=== PATIENT | male | born 1960 | race Caucasian/White ===

== ENCOUNTER 2017-12-25 00:02 | Inpatient (IN) ==
[2017-12-25 00:41] LABS: Basophils % 0.1 %; Eosinophils % 0.1 %; Hematocrit 21.3 % (37.5-50.1); Immature Granulocytes % 0.7 % (0-4); Lymphocytes % 7.1 %; Mean Corpuscular HGB Conc 35.7 g/dL (31.6-35.5); Mean Corpuscular Volume 109.2 fL (83.0-100.0); Mean Platelet Volume 8.8 fL (9.4-12.4); Monocytes % 7.2 %; Neutrophils # 11.7 K/mcL (1.6-8.9); Nucleated Red Blood Cells 0.1 /100 WBC (0); Platelet Count 178 K/mcL (140-400); Red Blood Count 1.95 M/mcL (4.19-5.50); Segmented Neutrophils % 84.8 %
[2017-12-25 01:10] LABS: Alanine Aminotransferase 17 Units/L (7-52); Albumin 2.3 g/dL (3.5-5.7); Albumin/Globulin Ratio 0.8 (1.1-2.2); Alkaline Phosphatase 109 Units/L (34-104); Aspartate Amino Transferase 32 Units/L (13-39); BUN/Creatinine Ratio 24 (6-26); Bilirubin,Total 4.3 mg/dL (0.3-1.0); Blood Urea Nitrogen 22 mg/dL (6-20); Carbon Dioxide 19 mEq/L (23-29); Chloride 96 mEq/L (98-107); Globulin 2.9 g/dL (2.4-3.5); Glucose 161 mg/dL (70-105); Osmolality,Calculated 273 (280-300); Potassium 5.2 mEq/L (3.5-5.1); Sodium 128 mEq/L (136-145); Total Protein 5.2 g/dL (6.4-8.9); Troponin I < 0.03 ng/mL (< 0.04); eGFR For African Americans > 60 (> 60); eGFR For Non-African Americans > 60 (> 60)
[2017-12-25 01:12] LABS: Hemoglobin 7.6 g/dL (12.9-16.9)
[2017-12-25] MEDS ORDERED: 0.9 % Sodium Chloride 1,000 ML ONE (02:17)
[2017-12-25] MEDS ORDERED: Pantoprazole 40 MG VIAL ONE ×2 (02:37→02:45)
[2017-12-25] MEDS ORDERED: 0.9 % Sodium Chloride 250 ML ONE ×3 (03:23→22:39)
[2017-12-25 05:51] LABS: INR 2.1
--- NOTE | 2017-12-25 06:07 | Emergency Department Note ---
Disposition Clinical Impression: GI bleed Qualifiers: GI bleed type/associated pathology: unspecified gastrointestinal hemorrhage type Qualified Code(s): K92.2 - Gastrointestinal hemorrhage, unspecified Anemia Qualifiers: Anemia type: unspecified type Qualified Code(s): D64.9 - Anemia, unspecified Cirrhosis of liver with ascites Qualifiers: Hepatic cirrhosis type: alcoholic cirrhosis Qualified Code(s): K70.31 - Alcoholic cirrhosis of liver with ascites Disposition: Admitted As Inpatient Condition: Serious General Adult HPI - General Chief complaint: ED Weakness Stated complaint: generalized weakness Time Seen by Provider: 12/25/17 00:53 Source: patient Limitations: no limitations Nursing Notes Reviewed: Yes Vital Signs Reviewed: Yes - History of Present Illness HPI Narrative: She presented to the emergency department for evaluation of shortness of breath and generalized weakness. Patient states that symptoms have been progressive over the last week. He states that he has had dark bowel movements which included approximately 4 bowel movements over the last 24 hours. Patient states he has noticed that his skin is sometimes pale. Family knows that he is occasionally jaundiced including his eyes. Patient does not have any previous diagnosis of liver disease. He does drink approximately 6 cocktails daily. Bedside ultrasound so shows significant cirrhosis. The patient's stool guaiac was positive for melanotic stool. Pain Scale: 0 - Related Data Home Medications Medication Instructions Recorded Confirmed Metoprolol [Lopressor] 50 mg PO BID 12/25/17 12/25/17 metFORMIN [Glucophage] 500 mg PO 0800 12/25/17 12/25/17 Allergies Allergy/AdvReac Type Severity Reaction Status Date / Time No Known Allergies Allergy Verified 12/25/17 00:14 Review of Systems: CONSTITUTIONAL: Weakness and fatigue No weight loss, fever, chills HEENT: Eyes: No visual changes. Ears, Nose, Throat: No hearing loss, difficulty talking or unable to swallow. SKIN: Color changes. No rash or itching. CARDIOVASCULAR: No chest pain, chest pressure or chest discomfort. No palpitations or edema. RESPIRATORY: Shortness of breath GASTROINTESTINAL: Melanotic stool. No abdominal pain. No vomiting. GENITOURINARY: No burning on urination or hematuria. NEUROLOGICAL: No headache, dizziness, syncope, paralysis, ataxia, numbness or tingling in the extremities. No change in bowel or bladder control. MUSCULOSKELETAL: No muscle pain, back pain, joint pain or stiffness. Past Medical History - Past Medical History Medical history: Reports: no medical history - Social History Smoking Status: Former smoker Alcohol use: Reports: occasionally Drug use: Reports: none Physical Exam General: Well appearing, nontoxic, no acute distress Head: Normocephalic Atraumatic Eyes: PERRL, EOMI ENT: Airway patent, no stridor Neck: supple, no meningismus Chest: Lungs clear to auscultation bilateral Cardiac: Regular rate and rhythm, no murmurs, rubs or gallops Abdomen: Mild distention soft, nontender; no guarding, rebound, or tenderness to percussion Musculoskeletal: Calves symmetric, nontender, no palpable cord Skin: Pale with mild jaundice, No rash, normal skin tone Neuro: Alert and Oriented to person, place, and time; No focal deficit, CN 2-12 symmetric and intact - General Limitations: no limitations General appearance: alert, in no apparent distress Course - Consultations Consultation #1: Discussed with Dr. Rivero. Patient was seen and evaluated during downtime. Patient was kept in the emergency department secondary to allow for closer observation. The patient received 1 unit of blood which did improve his overall blood pressure. The patient was then further discuss Dr. Rivero after downtime resolution. The patient INR is 2.1. Recommends giving vitamin K as well as FFP and one more unit of blood secondary to coagulopahty of the liver. Vital Signs Temperature 97.6 F 12/25/17 00:03 Pulse Rate 109 12/25/17 00:03 Respiratory Rate 18 12/25/17 00:03 Blood Pressure 74/51 12/25/17 00:03 O2 Sat by Pulse Oximetry 99 12/25/17 00:03 Temperature 97.6 F 12/25/17 00:03 Pulse Rate 95 12/25/17 06:33 Respiratory Rate 18 12/25/17 06:33 Blood Pressure 95/56 12/25/17 06:33 O2 Sat by Pulse Oximetry 97 12/25/17 06:33 Oxygen Delivery Oxygen Delivery Room Air Medical Decision Making - Medical Records Medical records reviewed: Yes I reviewed the patient's medical records. - Lab Data Lab results reviewed: Yes I reviewed the patient's lab results. Result diagrams: 12/25/17 00:20 12/25/17 00:20 Lab Results 12/25/17 12/25/17 12/25/17 Range/Units 00:20 00:20 00:20 WBC 13.8 H (4.3-11.1) K/mcL RBC 1.95 L (4.19-5.50) M/mcL Hgb 7.6 L (12.9-16.9) g/dL Hct 21.3 L (37.5-50.1) % MCV 109.2 H (83.0-100.0) fL MCH 39.0 H (28.0-33.3) pg MCHC 35.7 H (31.6-35.5) g/dL RDW 16.0 H (11.5-14.5) % Plt Count 178 (140-400) K/mcL MPV 8.8 L (9.4-12.4) fL Immature Gran % 0.7 (0-4) % Seg Neutrophils % 84.8 % Lymphocytes % 7.1 % Monocytes % 7.2 % Eosinophils % 0.1 % Basophils % 0.1 % Neutrophils # 11.7 H (1.6-8.9) K/mcL Lymphocytes # 1.0 (0.6-4.6) K/mcL Monocytes # 1.0 (0.0-1.3) K/mcL Eosinophils # 0.0 (0.0-0.6) K/mcL Basophils # 0.0 (0.0-0.2) K/mcL Nucleated RBCs/100 WBC 0.1 H (0) /100 WBC PT 23.0 H (9.4-12.1) Seconds INR 2.1 APTT 35.0 (26.0-36.0) Seconds Sodium 128 L (136-145) mEq/L Potassium 5.2 H (3.5-5.1) mEq/L Chloride 96 L (98-107) mEq/L Carbon Dioxide 19 L (23-29) mEq/L BUN 22 H (6-20) mg/dL Creatinine 0.90 (0.70-1.30) mg/dL Est GFR ( Amer) > 60 (> 60) Est GFR (Non-Af Amer) > 60 (> 60) BUN/Creatinine Ratio 24 (6-26) Glucose 161 H (70-105) mg/dL Calculated Osmolality 273 L (280-300) Calcium 8.0 L (8.6-10.3) mg/dL Total Bilirubin 4.3 H (0.3-1.0) mg/dL AST 32 (13-39) Units/L ALT 17 (7-52) Units/L Alkaline Phosphatase 109 H (34-104) Units/L Troponin I < 0.03 (< 0.04) ng/mL Serum Total Protein 5.2 L (6.4-8.9) g/dL Albumin 2.3 L (3.5-5.7) g/dL Globulin 2.9 (2.4-3.5) g/dL Albumin/Globulin Ratio 0.8 L (1.1-2.2) Urine Color (Yellow) Urine Clarity (Clear) Urine pH (5.0-8.0) pH Units Ur Specific [place] (1.010-1.025) Urine Protein (Neg-Trace) mg/dL Urine Glucose (UA) (Normal) mg/dL Urine Ketones (Negative) mg/dL Urine Blood (Negative) Urine Nitrite (Negative) Urine Bilirubin (Negative) Urine Urobilinogen (Normal) mg/dL Ur Leukocyte Esterase (Negative) Urine Microscopic RBC (0-3) per hpf Urine Microscopic WBC (0-3) per hpf Ur Squamous Epith Cells (None-Few) per lpf Urine Bacteria (None-Few) per hpf Hyaline Casts (None-Few) per lpf Urine Mucus (Few) Ur Culture Indicated? (NO) Blood Type Antibody Screen Crossmatch 12/25/17 12/25/17 Range/Units 01:41 04:39 WBC (4.3-11.1) K/mcL RBC (4.19-5.50) M/mcL Hgb (12.9-16.9) g/dL Hct (37.5-50.1) % MCV (83.0-100.0) fL MCH (28.0-33.3) pg MCHC (31.6-35.5) g/dL RDW (11.5-14.5) % Plt Count (140-400) K/mcL MPV (9.4-12.4) fL Immature Gran % (0-4) % Seg Neutrophils % % Lymphocytes % % Monocytes % % Eosinophils % % Basophils % % Neutrophils # (1.6-8.9) K/mcL Lymphocytes # (0.6-4.6) K/mcL Monocytes # (0.0-1.3) K/mcL Eosinophils # (0.0-0.6) K/mcL Basophils # (0.0-0.2) K/mcL Nucleated RBCs/100 WBC (0) /100 WBC PT (9.4-12.1) Seconds INR APTT (26.0-36.0) Seconds Sodium (136-145) mEq/L Potassium (3.5-5.1) mEq/L Chloride (98-107) mEq/L Carbon Dioxide (23-29) mEq/L BUN (6-20) mg/dL Creatinine (0.70-1.30) mg/dL Est GFR ( Amer) (> 60) Est GFR (Non-Af Amer) (> 60) BUN/Creatinine Ratio (6-26) Glucose (70-105) mg/dL Calculated Osmolality (280-300) Calcium (8.6-10.3) mg/dL Total Bilirubin (0.3-1.0) mg/dL AST (13-39) Units/L ALT (7-52) Units/L Alkaline Phosphatase (34-104) Units/L Troponin I (< 0.04) ng/mL Serum Total Protein (6.4-8.9) g/dL Albumin (3.5-5.7) g/dL Globulin (2.4-3.5) g/dL Albumin/Globulin Ratio (1.1-2.2) Urine Color Yellow (Yellow) Urine Clarity Clear (Clear) Urine pH 5.5 (5.0-8.0) pH Units Ur Specific [place] > 1.030 H (1.010-1.025) Urine Protein Negative (Neg-Trace) mg/dL Urine Glucose (UA) Normal (Normal) mg/dL Urine Ketones Negative (Negative) mg/dL Urine Blood Large H (Negative) Urine Nitrite Negative (Negative) Urine Bilirubin Negative (Negative) Urine Urobilinogen Normal (Normal) mg/dL Ur Leukocyte Esterase Negative (Negative) Urine Microscopic RBC 5-15 H (0-3) per hpf Urine Microscopic WBC 0-3 (0-3) per hpf Ur Squamous Epith Cells Few (None-Few) per lpf Urine Bacteria Few (None-Few) per hpf Hyaline Casts Few (None-Few) per lpf Urine Mucus Few (Few) Ur Culture Indicated? NO (NO) Blood Type A POSITIVE Antibody Screen NEGATIVE Crossmatch See Detail - Radiology Data Radiology results reviewed: Yes I reviewed the patient's radiology results. - EKG Data EKG #1 EKG attestation: Yes I reviewed and interpreted this EKG. EKG results narrative: EKG shows sinus tachycardia with ventricular rate 103. CO 159. QRS 84. QTC 396. Patient has no significant ST elevations or depressions. Critical Care Time Critical Care Time: Yes Total Critical Care Time: 50 Attestation: Critical care performed: Time is exclusive of separately billable procedures. Time includes: direct patient care, patient reassessment, coordination of patient care, interpretation of data (laboratory data, radiology data, and respiratory data), review of patient's medical records, medical consultation and documentation of patient care. Procedures included in critical care time: Procedures excluded from critical care time: Attestation Statement - Attestation Attestation: I, Harsh Jarvis MD, personally evaluated this patient and discussed their management with the resident physician. I reviewed the resident's note and agree with the documented findings, medical decision making, and plan of care. 57-year-old male presents to the emergency department with a complaint of generalized weakness started yesterday and got progressively worse throughout the day today. He states that he was barely able to get to the bathroom and back to his bed today and he just spent all day lying in bed. He denies any pain. On arrival here the patient was noted to be tachycardic and hypotensive. He appears somewhat pale. On questioning he admits to having black stools recently and states that he thought it was from the cranberry juice because he drinks 5 to 6 vodkas with cranberry juice daily. No prior history of GI bleed. No bright red rectal bleeding. No nausea or vomiting. No abdominal pain. He denies any prior history of liver problems. On examination patient is a well-developed well-nourished male in no acute distress. He does appear pale. He is alert and oriented 3. There is no cyanosis or diaphoresis. Breath sounds are clear and equal bilaterally. Heart regular with a mild tachycardia. Abdomen is soft and nontender with normal bowel sounds. Labs reviewed. Hemoglobin 7.6. Chest x-ray negative. CT of the abdomen and pelvis shows a cirrhotic-appearing liver with a large amount of ascites. Otherwise no acute abnormality. EKG shows a sinus tachycardia with ventricular rate of 103. Left axis deviation. Low QRS voltage in precordial leads. Possible anterior PA, probably old. IV fluids initiated and patient received a transfusion of PRBCs. The hospitalist, Dr. Rivero, was consulted and accepted admission of the patient.
[2017-12-25 06:31] LABS: Bilirubin,Urine Negative (Negative); Blood,Urine Large (Negative); Clarity,Urine Clear (Clear); Color,Urine Yellow (Yellow); Glucose,Urine (UA) Normal (Normal); Ketones,Urine Negative (Negative); PH,Urine 5.5 pH Units (5.0-8.0); Protein,Urine Negative (Neg-Trace); Specific Gravity,Urine > 1.030 (1.010-1.025)
[2017-12-25 06:32] LABS: Bacteria,Urine Few per hpf (None-Few); Hyaline Casts,Urine Few per lpf (None-Few); Leukocyte Esterase,Urine Negative (Negative); Mucus,Urine Few (Few); Nitrite,Urine Negative (Negative); Squamous Epithelial Cell,Urine Few per lpf (None-Few); Urobilinogen,Urine Normal (Normal); WBC,Urine 0-3 per hpf (0-3)
--- NOTE | 2017-12-25 08:54 | Internal Med History&Physical ---
Date of Encounter: 12/25/17 Time of Encounter: 08:00 Internal Medicine - H&P: HPI Chief complaint: melenic stools Admitted From: Home History of present illness: Patient is a 57-year-old male with past medical history significant for alcohol abuse/dependence, hypertension and diabetes who presents to the ER on 12/25/17 due to generalized weakness and melenic stools. Patient reports a 3 day history of generalized weakness with shortness of breath and dark tarry stools. Patient reports that generalized weakness gradually has gotten worse and decided to come into the ER for evaluation. In the ER, patient was found to have a hemoglobin of 7.6 and received 1 unit of packed red blood cells. CT of the abdomen showed cirrhotic appearing liver with large amount of ascites. Patient also hypotensive secondary to GI bleed. Patient admitted to the progressive unit for further evaluation and management. Past Med Surg Social Fam HX - Past Medical History Medical history: no medical history - Past Surgical History Surgical History: non-contributory - Social History Smoking Status: Former smoker Alcohol use: occasionally Drug use: none - Additional Family History Additional family history: Noncontributory Internal Medicine - H&P: Meds Metoprolol [Lopressor] 50 mg PO BID 12/25/17 [History] metFORMIN [Glucophage] 500 mg PO 0800 12/25/17 [History] 3 Allergy/AdvReac Type Severity Reaction Status Date / Time No Known Allergies Allergy Verified 12/25/17 00:14 All Systems PM: A 10-system review of systems was performed and is negative for pertinent findings except as documented above in the HPI. - Constitutional Vitals: Temp Pulse Resp BP Pulse Ox 97.6 F 95 18 84/50 97 12/25/17 00:03 12/25/17 06:33 12/25/17 07:02 12/25/17 07:02 12/25/17 06:33 General appearance: Present: A&O X 3, no acute distress - Eye Eye exam: Present: normal appearance, PERRL, conjuntiva pink, sclera anicteric Pupils: Present: PERRL - ENT ENT exam: Present: mucous membranes moist - Respiratory Respiratory exam: Present: CTAB. Absent: accessory muscle use, rales, rhonchi, wheezes - Cardiovascular Cardiovascular exam: Present: RRR, +S1, +S2. Absent: diastolic murmur, gallop, rubs, systolic murmur - GI/Abdominal GI/Abdominal exam: Present: normal bowel sounds, soft, no peritoneal signs. Absent: distended, tenderness - Extremities Exam Extremities exam: Absent: pedal edema - Neurological Exam Neurological exam: Present: oriented X3 - Psychiatric Psychiatric exam: Present: normal mood - Skin Skin exam: Present: normal color Internal Med - H&P Results - Labs CBC & Chem 7: 12/25/17 00:20 12/25/17 00:20 - Assessment and plan (1) GI bleed Current Visit: Yes Status: Acute Assessment and plan: Patient reports a 3 day history of generalized weakness with shortness of breath and dark tarry stools. Will continue IV PPI GI consulted and appreciate recommendations Qualifiers: GI bleed type/associated pathology: unspecified gastrointestinal hemorrhage type Qualified Code(s): K92.2 - Gastrointestinal hemorrhage, unspecified (2) Anemia Current Visit: Yes Status: Acute Assessment and plan: In the ER, patient was found to have a hemoglobin of 7.6 and received 1 unit of packed red blood cells. Suspect secondary to upper GI bleed as patient reports of melenic stools Patient to receive second unit of packed red blood cells this morning Will monitor H&H Qualifiers: Anemia type: unspecified type Qualified Code(s): D64.9 - Anemia, unspecified (3) Cirrhosis of liver with ascites Current Visit: Yes Status: Acute Assessment and plan: CT of the abdomen showed cirrhotic appearing liver with large amount of ascites GI consulted and appreciate recommendations Qualifiers: Hepatic cirrhosis type: alcoholic cirrhosis Qualified Code(s): K70.31 - Alcoholic cirrhosis of liver with ascites (4) HTN (hypertension), benign Current Visit: Yes Status: Acute Assessment and plan: Patient is actually hypotensive due to acute blood loss anemia secondary to GI Blood pressure medicines will be held Will continue to monitor (5) Diabetes Current Visit: Yes Status: Acute Assessment and plan: Will hold metformin and cover with sliding scale insulin Qualifiers: Chronic kidney disease stage: unspecified stage Qualified Code(s): E08.22 - Diabetes mellitus due to underlying condition with diabetic chronic kidney disease; Z79.4 - retirement (current) use of insulin (6) DVT prophylaxis Current Visit: Yes Status: Acute Assessment and plan: Patient with acute blood loss anemia so will use SCDs - Time Spent With Patient Total time spent is greater than 50% in coordination of care (as documented) at patient's floor/unit and/or counseling patient:
[2017-12-25] MEDS ORDERED: 0.9 % Sodium Chloride 500 ML ONE (08:58)
[2017-12-25] MEDS ORDERED: Naloxone 0.4 MG/ML INJ IVP PRN ×2 (09:15→09:18)
[2017-12-25 10:06] LABS: Hematocrit 20.6 % (37.5-50.1); Hemoglobin 7.6 g/dL (12.9-16.9)
[2017-12-25] MEDS ORDERED: 0.9 % Sodium Chloride 500 ML IVC ONE (10:24)
[2017-12-25] MEDS ORDERED: Octreotide 50 MCG/ML SYRINGE IVP ONE (12:19)
--- NOTE | 2017-12-25 12:22 | Gastroenterology Consult Note ---
<MontanezHernán Hooper - Last Filed: 12/25/17 12:20> Date of Encounter: 12/25/17 Time of Encounter: 11:20 - Assessment and plan (1) GI bleed Current Visit: Yes Status: Acute Assessment and plan: Pt with melena for the past 3 days. Plan for EGD tomorrow to r/o esophagitis, gastritis, duodenitis, PUD, MW tear, or AVM. Qualifiers: GI bleed type/associated pathology: unspecified gastrointestinal hemorrhage type Qualified Code(s): K92.2 - Gastrointestinal hemorrhage, unspecified (2) Anemia Current Visit: Yes Status: Acute Assessment and plan: Hgb on admission 7.6. Continue to monitor CBC and transfuse PRBC as needed. Plan for EGD tomorrow. Qualifiers: Anemia type: unspecified type Qualified Code(s): D64.9 - Anemia, unspecified (3) Cirrhosis of liver with ascites Current Visit: Yes Status: Acute Assessment and plan: Secondary to alcohol abuse. MELD-Na 26, Child-[place] class C, DF 61.8. Consider steroids due to elevated DF, monitor bilirubin. Start octreotide drip. Monitor hepatic panel daily. Complete paracentesis and send fluid for cell count. Infuse Albumin 25%, 8 gm/L if greater than 5 liters removed. Complete liver workup. Qualifiers: Hepatic cirrhosis type: alcoholic cirrhosis Qualified Code(s): K70.31 - Alcoholic cirrhosis of liver with ascites (4) Elevated INR Current Visit: Yes Status: Acute Assessment and plan: INR 2.1 on admission. Start Vitamin K 10 mg PO for 3 days. Recommend 2 FFP tonight for EGD tomorrow. - Time Spent With Patient Total time spent is greater than 50% in coordination of care (as documented) at patient's floor/unit and/or counseling patient: GI History of Present Illness - Data of Consult Patient: new to practice Consult date: 12/25/17 Requesting Physician: Bennett Rivero MD - Consult Narrative Reason for consult: Melena, Anemia History of present illness: Mr. Oliver is a 57 year old male with PMHx of alcohol abuse, HTN, DM who presented to the ED 12/25 for evaluation of generalized weakness and melena for the past 3 days. Pt states his weakness has gradually worsened. Hgb on admission was 7.6. CT A/P with cirrhotic appearance to liver with large amount of ascites. He admits to drinking alcohol daily, but can not tell me how much he drinks. Procedures: None NSAIDs: ASA Anticoagulation: None Past Med Surg Social Fam HX - Past Medical History Medical history: no medical history - Past Surgical History Surgical History: non-contributory - Social History Smoking Status: Former smoker Alcohol use: occasionally Drug use: none - Gastrointestinal Gastrointestinal: Present: as per HPI - Constitutional Constitutional: as per HPI - EENT Eyes: as per HPI Ears: Present: as per HPI Nose, mouth and throat: Present: as per HPI - Cardiovascular Cardiovascular ROS: Present: as per HPI - Respiratory Respiratory IM: Present: as per HPI - Genitourinary Genitourinary: Absent: change in color, Urinary frequency - Neurological ROS Neurological GI: Present: as per HPI - Hematologic/Lymphatic Hematologic/Lymphatic pediatric: Present: as per HPI - Musculoskeletal Musculoskeletal ROS GI: Present: as per HPI - Integumentary Integumentary GI: Present: as per HPI - Psychiatric ROS Psychiatric GI: Present: as per HPI - Endocrine Endocrine IM: Present: as per HPI - Constitutional Vitals: Temp Pulse Resp BP Pulse Ox 97.6 F 99 18 84/44 98 12/25/17 11:18 12/25/17 11:18 12/25/17 11:18 12/25/17 11:18 12/25/17 11:03 General appearance: Present: cooperative, A&O X 3, no acute distress, answers questions appropriately - Head Head exam: Present: atraumatic, normocephalic - Eye Eye exam: Present: normal appearance, sclera anicteric - ENT ENT exam: Present: mucous membranes dry - Neck Neck exam general surgery: Present: normal inspection, trachea midline - Respiratory Respiratory exam: Present: CTAB. Absent: rales, rhonchi - Cardiovascular Cardiovascular exam: Present: RRR, +S1, +S2 - GI/Abdominal GI/Abdominal exam: Present: distended (mild), soft, no peritoneal signs. Absent : firm, guarding, tenderness - Expanded GI/Abdominal Exam GI/Abdominal exam expanded: Present: ascites - Rectal Rectal exam: Present: deferred - Extremities Exam Extremities exam: Present: warm - Neurological Exam Neurological exam: Present: no focal deficits - Psychiatric Psychiatric exam: Present: normal affect, normal mood - Skin Skin exam: Present: dry, intact, normal color, warm Results - Labs CBC & Chem 7: 12/25/17 09:54 12/25/17 00:20 Labs: Last Result Calcium 8.0 mg/dL (8.6-10.3) L 12/25/17 00:20 Troponin I < 0.03 ng/mL (< 0.04) 12/25/17 00:20 Entire Visit Hgb 7.6 g/dL (12.9-16.9) L 12/25/17 09:54 Hct 20.6 % (37.5-50.1) L 12/25/17 09:54 PT 23.0 Seconds (9.4-12.1) H 12/25/17 00:20 Total Bilirubin 4.3 mg/dL (0.3-1.0) H 12/25/17 00:20 AST 32 Units/L (13-39) 12/25/17 00:20 ALT 17 Units/L (7-52) 12/25/17 00:20 - ABG ABG results: PT/INR, D-dimer PT 23.0 Seconds (9.4-12.1) H 12/25/17 00:20 Consult Discharge Plan - Plan Referrals: Naresh Enciso DO [Primary Care Provider] - (Patient to call Dr. Enciso when discharged to make hospital follow up appointment.) <Tierra Song - Last Filed: 12/25/17 17:44> Date of Encounter: 12/25/17 - Time Spent With Patient Total time spent is greater than 50% in coordination of care (as documented) at patient's floor/unit and/or counseling patient: GI History of Present Illness - Data of Consult Requesting Physician: Bennett Rivero MD - Consult Narrative History of present illness: Mr. Oliver is a 57 year old male - Constitutional Vitals: Temp Pulse Resp BP Pulse Ox 97.6 F 95 21 98/67 98 12/25/17 16:57 12/25/17 16:57 12/25/17 16:57 12/25/17 16:57 12/25/17 16:57 Results - Labs CBC & Chem 7: 12/25/17 15:21 12/25/17 00:20 Labs: Last Result Calcium 8.0 mg/dL (8.6-10.3) L 12/25/17 00:20 Ferritin 1069 ng/ml (20-250) H 12/25/17 15:21 Troponin I < 0.03 ng/mL (< 0.04) 12/25/17 00:20 Entire Visit Hgb 8.8 g/dL (12.9-16.9) L 12/25/17 15:21 Hct 24.2 % (37.5-50.1) L 12/25/17 15:21 PT 23.0 Seconds (9.4-12.1) H 12/25/17 00:20 Ferritin 1069 ng/ml (20-250) H 12/25/17 15:21 Total Bilirubin 4.3 mg/dL (0.3-1.0) H 12/25/17 00:20 AST 32 Units/L (13-39) 12/25/17 00:20 ALT 17 Units/L (7-52) 12/25/17 00:20 - ABG ABG results: PT/INR, D-dimer PT 23.0 Seconds (9.4-12.1) H 12/25/17 00:20 - Impressions Impressions Paracentesis Ultrasound 12/25/17 12:14 IMPRESSION: 1. Successful ultrasound guided paracentesis. D/ / Riley Sood MD / Riley Sood MD Interpreting Provider: Riley Sood MD - Attending Attestation I have personally performed a face to face evaluation on this patient. I have reviewed and agree with the care plan. History and Exam by me shows: Patient seen at the bedside sitting in the chair not in acute distress. On examination abdomen is mildly distended and also has leg swelling. Does admit of drinking heavily. Assessment: Patient with alcoholic cirrhosis. Currently patient DF is 60. Coagulopathy with INR 2.1 also has anemia and it does admit of having black stool and per patient he vomited small amount of blood that about 3 days ago. Recommendation: Vitamin K daily for 3 days FFP 2, if DF is increasing then we will start him on steroid possible EGD in the morning. Also we will start him on octreotide infusion.
[2017-12-25] MEDS: *HR* Phytonadione 5 MG TABLET PO SCH (13:16)
[2017-12-25] MEDS: Octreotide 400 MCG in 0.9 % Sodium Chloride 100 ML IVC SCH (13:17)
--- NOTE | 2017-12-25 14:38 | IR Procedure Note ---
Date of procedure: 12/25/17 Consent Obtained: Written consent Timeout: Correct patient and procedure verified, Time out performed, Skin prep completed Local anesthetic: Lidocaine 1% Indications: Ascites Procedure Performed: Paracentesis Was there an dental assistant teacher present: No Estimated blood loss (cc): 0 Complications: None; Tolerated procedure well Post Procedure Treatment Plan: Monitor on floor Specimen: To path
--- NOTE | 2017-12-25 15:14 | Electrocardiograph Report ---
[place] [address] Test Date: 2017-12-25 Pat Name: Solis Oliver Department: 103 Room: 2N11 Gender: M Sales Enablement Specialist: DALE : 1960 Requested By: Harsh Jarvis Order Number: [id number] Reading MD: Dixie Chung Measurements Intervals [place] Rate: 103 P: 22 OR: 159 QRS: -32 QRSD: 84 T: 60 QT: 336 QTc: 396 Interpretive Statements SINUS TACHYCARDIA LEFT AXIS DEVIATION [QRS AXIS < -30] LOW QRS VOLTAGE IN PRECORDIAL LEADS [QRS DEFLECTION < 1.0 mV IN CHEST LEADS] POSSIBLE ANTERIOR MYOCARDIAL INFARCTION [30 ms Q WAVE IN V3/V4, OR R < 0.2 mV IN V4], PROBABLY OLD Electronically Signed On 12-25-2017 15:13:10 EDT by Dixie Chung
[2017-12-25 15:39] LABS: Hematocrit 24.2 % (37.5-50.1); Hemoglobin 8.8 g/dL (12.9-16.9)
[2017-12-25 18:01] LABS: RBC,Pleural Fluid < 0.002 M/mcL
[2017-12-25] MEDS: Pantoprazole 40 MG VIAL IVP SCH (20:26)
[2017-12-25 21:51] LABS: Hemoglobin 8.5 g/dL (12.9-16.9)
--- NOTE | 2017-12-25 23:49 | Anesthesia Evaluation PreOp ---
Date of Encounter: 12/26/17 Time of Encounter: 08:14 - Past History Planned Operation: EGD Cardiac History: HTN Pulmonary History: Former smoker FRONT END JAVA DEVELOPER History: Denies Any Significant HX Other Medical History: Diabetes Type II, Other (ETOH abuse, anemia, melana) Anesthesia History: No Prior Anesthetic Complications, Past Anesthesia (back sx) Alcohol Use: occasionally Drug use: none Medications and Allergies Aspirin [Lo-Dose Aspirin EC] 81 mg PO Q48H 12/25/17 [History] Cholecalciferol (D-3) [Vitamin D] 1,000 unit PO DAILY 12/25/17 [History] Metoprolol [Lopressor] 50 mg PO BID 12/25/17 [History] Sildenafil Citrate [Revatio] 20 mg PO DAILY PRN 12/25/17 [History] metFORMIN [Glucophage] 500 mg PO 0800 12/25/17 [History] 3 Allergy/AdvReac Type Severity Reaction Status Date / Time No Known Allergies Allergy Verified 12/25/17 09:32 - Meds/Allergy Pre-op Review Medications Reviewed: Yes Allergies Reviewed: Yes Beta Blockers on Current Med List: No Anesthesia Results - Labs 12/26/17 06:25 12/26/17 04:21 Anesthesia Exam Selected Entries 12/26/17 06:44 Temperature 98.5 F Pulse Rate 89 Respiratory Rate 18 Blood Pressure 86/51 O2 Sat by Pulse Oximetry 95 Oxygen Delivery Method Room Air Weight: 94kg NPO (# of Hours): 8 - HEENT Pupil (Motor): EOMI Mallampati: II Teeth: Edentulous Oral Opening: Greater than 3 - FRONT END JAVA DEVELOPER LOC: Oriented FRONT END JAVA DEVELOPER Motor: Normal RUE, Normal LUE, Normal RLE, Normal LLE, Normal Face FRONT END JAVA DEVELOPER Sensory: Normal: RUE, LUE, RLE, LLE, Face - Cardiac Rhythm: Regular Murmur: None - Pulmonary Breath Sounds: bilateral Clear Respiratory Effort: Symmetrical Anesthesia Assess/Plan ASA Score: 3 Modified Cleve Scale for Level of Consciousness: Cooperative, oriented, and tranquil Anesthetic Plan: MAC Monitoring Plan: Standard Monitors Recovery Plan: Other (agrees to MAC)
[2017-12-26] MEDS: Octreotide 400 MCG in 0.9 % Sodium Chloride 100 ML IVC SCH (00:15)
[2017-12-26 00:58] LABS: Hepatitis A Antibody IgM Nonreactive (Nonreactive); Hepatitis B Core IgM Nonreactive (Nonreactive); Hepatitis B Surface Antigen Nonreactive (Nonreactive); Hepatitis C Virus Antibody Nonreactive (Nonreactive)
[2017-12-26 05:21] LABS: BUN/Creatinine Ratio 26 (6-26); Blood Urea Nitrogen 21 mg/dL (6-20); Calcium 7.5 mg/dL (8.6-10.3); Carbon Dioxide 21 mEq/L (23-29); Chloride 104 mEq/L (98-107); Glucose 119 mg/dL (70-105); Osmolality,Calculated 276 (280-300); Potassium 5.4 mEq/L (3.5-5.1); Sodium 131 mEq/L (136-145); eGFR For African Americans > 60 (> 60); eGFR For Non-African Americans > 60 (> 60)
[2017-12-26] MEDS: Pantoprazole 40 MG VIAL IVP SCH ×2 (06:12→18:39)
[2017-12-26 07:01] LABS: Basophils % 0.4 %; Eosinophils # 0.4 K/mcL (0.0-0.6); Eosinophils % 4.2 %; Hematocrit 19.7 % (37.5-50.1); Hemoglobin 7.2 g/dL (12.9-16.9); Immature Granulocytes % 0.7 % (0-4); Lymphocytes # 2.1 K/mcL (0.6-4.6); Lymphocytes % 20.2 %; Mean Corpuscular HGB Conc 36.5 g/dL (31.6-35.5); Mean Corpuscular Hemoglobin 36.7 pg (28.0-33.3); Mean Corpuscular Volume 100.5 fL (83.0-100.0); Mean Platelet Volume 8.6 fL (9.4-12.4); Monocytes # 0.9 K/mcL (0.0-1.3); Monocytes % 9.2 %; Neutrophils # 6.6 K/mcL (1.6-8.9); Platelet Count 104 K/mcL (140-400); Red Blood Count 1.96 M/mcL (4.19-5.50); Red Cell Distribution Width 22.5 % (11.5-14.5); Segmented Neutrophils % 65.3 %
[2017-12-26] MEDS ORDERED: *HR* Propofol 200 MG/20 ML VIAL IVP ONE (07:13)
[2017-12-26] MEDS ORDERED: Lidocaine -MPF 2% 2 ML VIAL ONE (07:13)
[2017-12-26] MEDS ORDERED: Propofol 500 MG/50 ML INFUS..BTL ONE (07:13)
[2017-12-26 07:19] LABS: Basophils,Pleural Fluid 1 %; Lymphocytes,Pleural Fluid 12 %; Monocytes,Pleural Fluid 4 %
[2017-12-26 07:29] LABS: Appearance of Pleural Fl Clear (Clear)
[2017-12-26] MEDS ORDERED: *HR* PHENYLEPHRINE 1,000 MCG/10 ML SYRINGE IVP ONE (07:31)
[2017-12-26] MEDS: *HR* Phytonadione 5 MG TABLET PO SCH (07:54)
[2017-12-26] MEDS ORDERED: Simethicone 40 MG/0.6 ML MLS IR ONE (08:25)
[2017-12-26] MEDS ORDERED: Tetracaine/Benzocaine/Butamben 200MG/SPRAY (100SPY/BOT) MM ONE (08:25)
[2017-12-26 08:33] LABS: INR 1.7; Prothrombin Time 18.4 Seconds (9.4-12.1)
[2017-12-26] MEDS ORDERED: Pantoprazole 40 MG in 0.9 % Sodium Chloride Mini Bag 100 ML IVC SCH (10:00)
[2017-12-26] MEDS ORDERED: Acetaminophen 325 MG TABLET PO PRN (13:53)
[2017-12-26] MEDS ORDERED: *HR* Dextrose 50 % in Water (Syg) 50 ML SYRINGE IVP PRN (13:54)
[2017-12-26] MEDS ORDERED: D5% in Water 1,000 ML IVC PRN (13:54)
[2017-12-26] MEDS ORDERED: Dextrose Gel 15 GM/37.5 ML TUBE PO PRN ×2 (13:54)
--- NOTE | 2017-12-26 13:57 | Internal Med Progress Note ---
Date of Encounter: 12/26/17 Time of Encounter: 13:55 - Assessment and plan (1) GI bleed Current Visit: Yes Status: Acute Assessment and plan: Hypotension secondary to acute blood lows anemia due to acute upper GI bleed exacerbated by high INR related to cirrhosis Was transfused with 2 units of blood and FFP Upper endoscopy showed grade D esophagitis, MV tear, duodenal ulcer status post catheterization Hold aspirin Patient reports a 3 day history of generalized weakness with shortness of breath and dark tarry stools. Will continue IV PPI GI consulted follow-up Transfuse 2 more units of red blood cells Qualifiers: GI bleed type/associated pathology: unspecified gastrointestinal hemorrhage type Qualified Code(s): K92.2 - Gastrointestinal hemorrhage, unspecified (2) Anemia Current Visit: Yes Status: Acute Assessment and plan: In the ER, patient was found to have a hemoglobin of 7.6 Will monitor H&H Qualifiers: Anemia type: unspecified type Qualified Code(s): D64.9 - Anemia, unspecified (3) Cirrhosis of liver with ascites Current Visit: Yes Status: Acute Assessment and plan: CT of the abdomen showed cirrhotic appearing liver with large amount of ascites Had paracenteses removing 3.5 L Qualifiers: Hepatic cirrhosis type: alcoholic cirrhosis Qualified Code(s): K70.31 - Alcoholic cirrhosis of liver with ascites (4) HTN (hypertension), benign Current Visit: Yes Status: Acute Assessment and plan: hypotensive due to acute blood loss anemia Resume lower dose of metoprolol (takes 50 mrem twice a day at home) (5) Diabetes Current Visit: Yes Status: Acute Assessment and plan: Will hold metformin and cover with sliding scale insulin Qualifiers: Chronic kidney disease stage: unspecified stage Qualified Code(s): E08.22 - Diabetes mellitus due to underlying condition with diabetic chronic kidney disease; Z79.4 - [facility] (current) use of insulin - Time Spent With Patient Total time spent is greater than 50% in coordination of care (as documented) at patient's floor/unit and/or counseling patient: - Subjective Interval history: Still tachycardic, denies any abdominal pain, no dysuria, no fevers or chills, no diarrhea, no chest pain - Constitutional Vitals: Temp Pulse Resp BP Pulse Ox 98.6 F 99 18 73/58 95 12/26/17 11:22 12/26/17 11:22 12/26/17 11:22 12/26/17 11:22 12/26/17 11:22 General appearance: Present: A&O X 3, no acute distress - Head Head exam: Present: atraumatic, normocephalic - Eye Eye exam: Present: PERRL, conjuntiva pink, sclera anicteric Pupils: Present: PERRL - Neck Neck exam general surgery: Present: supple, trachea midline. Absent: lymphadenopathy - Respiratory Respiratory exam: Present: CTAB, rales (Left basilar crackles). Absent: accessory muscle use, rhonchi, wheezes - Cardiovascular Cardiovascular exam: Present: RRR, +S1, +S2. Absent: diastolic murmur, gallop, rubs, systolic murmur - GI/Abdominal GI/Abdominal exam: Present: distended (Ascites noticed), normal bowel sounds, soft, no peritoneal signs. Absent: tenderness - Extremities Exam Extremities exam: Present: pedal edema (+2 pitting edema in both lower extremities), warm, radial pulses palpable and symmetrical. Absent: calf tenderness, cyanotic - Neurological Exam Neurological exam: Present: CN II-XII intact, oriented X3, no focal deficits. Absent: pronater drift, facial droop, speech deficit - Skin Skin exam: Present: dry, intact Internal Medicine: Result - Labs CBC & Chem 7: 12/26/17 06:25 12/26/17 04:21 Labs: Short CBC 12/25/17 12/25/17 12/26/17 Range/Units 15:21 21:40 06:25 WBC 10.1 (4.3-11.1) K/mcL Hgb 8.8 L 8.5 L 7.2 L (12.9-16.9) g/dL Hct 24.2 L 23.0 L 19.7 L (37.5-50.1) % Plt Count 104 L (140-400) K/mcL Neutrophils # 6.6 (1.6-8.9) K/mcL BMP 12/26/17 04:21 Sodium 131 L Potassium 5.4 H Chloride 104 Carbon Dioxide 21 L BUN 21 H Creatinine 0.80 Glucose 119 H Calcium 7.5 L - ABG Interpretation ABG results: PT/INR, D-dimer PT 18.4 Seconds (9.4-12.1) H 12/26/17 08:05 - Impressions Impressions Paracentesis Ultrasound 12/25/17 12:14 IMPRESSION: 1. Successful ultrasound guided paracentesis. D/ / Riley Sood MD / Riley Sood MD Interpreting Provider: Riley Sood MD Liver Ultrasound 12/25/17 18:00 IMPRESSION: 1. Coarse heterogenous echotexture of liver parenchyma with lobulated margins consistent with cirrhosis. 2. Large amount of ascites in the right upper abdomen. 3. Biliary sludge in the gallbladder. D/ / Koki Lorenz MD / Koki Lorenz MD Interpreting Provider: Koki Lorenz MD - VTE Reasons for not Prescribing Prophylaxis: Medical contraindication Documentation of Mechanical Device: Intermittent pneumatic compression device Consult Discharge Plan - Plan Referrals: Naresh Enciso DO [Primary Care Provider] - (Patient to call Dr. Enciso when discharged to make hospital follow up appointment.)
[2017-12-26] MEDS ORDERED: *HR* LORazepam 2 MG/ML VIAL IVP PRN ×3 (14:39)
[2017-12-26] MEDS ORDERED: 0.9 % Sodium Chloride 250 ML ONE (15:19)
[2017-12-26] MEDS ORDERED: Thiamine (B-1) 100 MG, Folic Acid 1 MG, MVI, adult with vitamin K 10 ML in 0.9 % Sodi... IVPB SCH (18:00)
[2017-12-26] MEDS: Insulin LISPRO 300 UNITS/3 ML VIAL SQ SCH (18:32)
[2017-12-27 01:44] LABS: BUN/Creatinine Ratio 19 (6-26); Blood Urea Nitrogen 14 mg/dL (6-20); Calcium 7.3 mg/dL (8.6-10.3); Carbon Dioxide 23 mEq/L (23-29); Chloride 105 mEq/L (98-107); Glucose 103 mg/dL (70-105); Osmolality,Calculated 275 (280-300); Potassium 4.4 mEq/L (3.5-5.1); Sodium 132 mEq/L (136-145); eGFR For African Americans > 60 (> 60); eGFR For Non-African Americans > 60 (> 60)
[2017-12-27 02:29] LABS: Hematocrit 26.1 % (37.5-50.1); Hemoglobin 9.1 g/dL (12.9-16.9); Mean Corpuscular HGB Conc 34.9 g/dL (31.6-35.5); Mean Corpuscular Hemoglobin 33.7 pg (28.0-33.3); Mean Corpuscular Volume 96.7 fL (83.0-100.0); Platelet Count 122 K/mcL (140-400); Red Cell Distribution Width 22.7 % (11.5-14.5)
[2017-12-27] MEDS: Pantoprazole 40 MG VIAL IVP SCH (06:22)
[2017-12-27 07:22] VITALS: BP 103/66
[2017-12-27] MEDS: *HR* Phytonadione 5 MG TABLET PO SCH (08:10)
[2017-12-27] MEDS: Insulin LISPRO 300 UNITS/3 ML VIAL SQ SCH (08:10)
[2017-12-27] MEDS ORDERED: cephALEXin 500 MG CAPSULE PO SCH (09:30)
--- NOTE | 2017-12-27 09:31 | Discharge Summary ---
- NOTES TO OUTPATIENT PROVIDER Notes to Outpatient Provider: Follow-up with primary care physician within the next 7 days, follow-up with GI within the next 2-3 weeks. Continue omeprazole 40 mg twice a day, sucralfate. Complete 5 days of cephalexin for UTI. Continue lactulose. Hold aspirin for 3 weeks Orders not resulted at time of discharge: Pending orders 12/25/17 15:21 AFP Tumor Marker Non- Routine CHRISTINA IgG CLARISA rflx IFA Routine [id number] Routine Ceruloplasmin Routine F-Actin IgG Reflex Sm Muscle Routine MPO/PR3 (ANCA) Antibodies Routine Mitochondrial M2 Antibody, IgG Routine Date of Encounter: 12/27/17 Time of Encounter: 09:29 - Discharge Diagnosis (1) GI bleed Priority: Primary Status: Acute Assessment and Plan: Hypotension secondary to acute blood loss anemia due to acute upper GI bleed exacerbated by high INR related to cirrhosis Qualifiers: GI bleed type/associated pathology: unspecified gastrointestinal hemorrhage type Qualified Code(s): K92.2 - Gastrointestinal hemorrhage, unspecified (2) Anemia Priority: Primary Status: Acute Assessment and Plan: In the ER, patient was found to have a hemoglobin of 7.6 Qualifiers: Anemia type: unspecified type Qualified Code(s): D64.9 - Anemia, unspecified (3) Cirrhosis of liver with ascites Priority: Secondary Status: Acute Qualifiers: Hepatic cirrhosis type: alcoholic cirrhosis Qualified Code(s): K70.31 - Alcoholic cirrhosis of liver with ascites (4) HTN (hypertension), benign Priority: Secondary Status: Acute (5) Diabetes Priority: Secondary Status: Acute Qualifiers: Chronic kidney disease stage: unspecified stage Qualified Code(s): E08.22 - Diabetes 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 Oliver is a 57 year old male with past medical history significant for alcohol abuse/dependence, hypertension, cirrhosis with ascites, and diabetes not insulin-dependent who presented to the ER on 12/25/17 due to generalized weakness and melenic stools. Patient reports a 3 day history of generalized weakness with shortness of breath , also dark tarry stools. Patient reported that generalized weakness gradually has gotten worse and decided to come into the ER for evaluation. In the ER, patient was found to have a hemoglobin of 7.6 and received 1 unit of packed red blood cells. CT of the abdomen showed cirrhotic appearing liver with large amount of ascites. INR was 2.1, potassium was 5.2 and increased to 5.4, today's 4.4. CT of the abdomen showed cirrhotic appearing liver with large amount of ascites Was evaluated by the GI service, started on octreotide and IV Protonix. Had paracenteses removing 3.5 L Was transfused with a total of 4 units of blood and 2 units of FFP Upper endoscopy showed grade D esophagitis, Sharon-Palomino tear cautherized , duodenal ulcer was nonbleeding. MELD-Na 26, Child-Blackburn class C, DF 61.8. Consider steroids after follow up with GI due to elevated DF. Steroids were discussed and prefers to see the GI doctor again before starting them. Hemoglobin is 9.1 today has not had any bowel movements. Stable to be discharged. He was given the option to stay another day but prefers to go home at this time. Urine culture was positive for Staphylococcus epidermides sensitive to oxacillin - Time Spent with Patient Total time spent providing and/or coordinating discharge services: Greater than 30 minutes (40 min) - Discharge Medications Prescriptions: cephALEXin [Keflex] 500 mg PO BID #10 capsule Furosemide [Lasix] 20 mg PO DAILY #30 tablet Lactulose 20 gm PO DAILY 30 Days #1 solution Omeprazole [PriLOSEC] 40 mg PO BID #60 cap Spironolactone [Aldactone] 12.5 mg PO DAILY #30 tablet Sucralfate [Carafate] 1 gm PO QIDAC 30 Days #120 tablet Home Medications: Cholecalciferol (D-3) [Vitamin D] 1,000 unit PO DAILY 12/25/17 [History] Metoprolol [Lopressor] 50 mg PO BID 12/25/17 [History] Sildenafil Citrate [Revatio] 20 mg PO DAILY PRN 12/25/17 [History] metFORMIN [Glucophage] 500 mg PO 0800 12/25/17 [History] Acetaminophen [Tylenol] 650 mg PO Q4HR PRN tablet 12/27/17 [Rx] Furosemide [Lasix] 20 mg PO DAILY #30 tablet 12/27/17 [Rx] Lactulose 20 gm PO DAILY 30 Days #1 solution 12/27/17 [Rx] Omeprazole [PriLOSEC] 40 mg PO BID #60 cap 12/27/17 [Rx] Spironolactone [Aldactone] 12.5 mg PO DAILY #30 tablet 12/27/17 [Rx] Sucralfate [Carafate] 1 gm PO QIDAC 30 Days #120 tablet 12/27/17 [Rx] cephALEXin [Keflex] 500 mg PO BID #10 capsule 12/27/17 [Rx] Allergies/Adverse Reactions: 3 Allergy/AdvReac Type Severity Reaction Status Date / Time No Known Allergies Allergy Verified 12/25/17 09:32 Date of admission: 12/25/17 10:40 Primary care physician: Naresh Yoon Colopy - Constitutional Vitals: Temp Pulse Resp BP Pulse Ox 98.0 F 81 16 103/66 95 12/27/17 07:20 12/27/17 07:20 12/27/17 07:20 12/27/17 07:20 12/27/17 07:20 General appearance: Present: A&O X 3, no acute distress Exam: - Head Head exam: Present: atraumatic, normocephalic - Eye Eye exam: Present: PERRL, conjuntiva pink, sclera icteric Pupils: Present: PERRL Jaundiced - Neck Neck exam general surgery: Present: supple, trachea midline. Absent: lymphadenopathy - Respiratory Respiratory exam: Present: CTAB, rales (Left basilar crackles). Absent: accessory muscle use, rhonchi, wheezes - Cardiovascular Cardiovascular exam: Present: RRR, +S1, +S2. Absent: diastolic murmur, gallop, rubs, systolic murmur - GI/Abdominal GI/Abdominal exam: Present: distended (Ascites noticed), normal bowel sounds, soft, no peritoneal signs. Absent: tenderness - Extremities Exam Extremities exam: Present: pedal edema (+2 pitting edema in both lower extremities), warm, radial pulses palpable and symmetrical. Absent: calf tenderness, cyanotic - Neurological Exam Neurological exam: Present: CN II-XII intact, oriented X3, no focal deficits. Absent: pronater drift, facial droop, speech deficit - Skin Skin exam: Present: dry, intact - Patient Status Disposition: Home Health Service Condition: Fair Overall status at discharge: patient is progressing back to baseline - Discharge Instructions Follow Up With: Naresh Enciso DO [Primary Care Provider] - (Patient to call Dr. Enciso when discharged to make hospital follow up appointment.) - Diet and Activity Activity: increase activity as tolerated Diet: diabetic diet - VTE Reasons for not Prescribing Prophylaxis: Medical contraindication Documentation of Mechanical Device: Graduated compression elastic hosiery
--- NOTE | 2017-12-27 09:47 | Physician Discharge Referral ---
Home Health/Hosp Referral Info Transfer to: Home Health Provider in Charge Post Discharge: PCP - Diagnosis (1) GI bleed Status: Acute (2) Anemia Status: Acute (3) Cirrhosis of liver with ascites Status: Acute (4) HTN (hypertension), benign Status: Acute (5) Diabetes Status: Acute (6) UTI (urinary tract infection) Status: Acute - Respiratory Orders Smoking Cessation: Smoking cessation has been advised. For more information, call the [place] Tobacco Quit Line at 2-487-OCAQ-NOW. - Diet/Nutrition Diet/Nutrition Orders: No Added Salt (MONICA) - Services Needed Following services are medically necessary services: Home Health Aide, Physical Therapy, Occupational Therapy Home Care Orders: Follow-up with primary care physician within the next 7 days, follow-up with GI within the next 2-3 weeks. Continue omeprazole 40 mg twice a day, sucralfate. Complete 5 days of cephalexin for UTI. Continue lactulose. Hold aspirin for 3 weeks - Transfer Medications Prescriptions: cephALEXin [Keflex] 500 mg PO BID #10 capsule Furosemide [Lasix] 20 mg PO DAILY #30 tablet Lactulose 20 gm PO DAILY 30 Days #1 solution Omeprazole [PriLOSEC] 40 mg PO BID #60 cap Spironolactone [Aldactone] 12.5 mg PO DAILY #30 tablet Sucralfate [Carafate] 1 gm PO QIDAC 30 Days #120 tablet Home Medications: Cholecalciferol (D-3) [Vitamin D] 1,000 unit PO DAILY 12/25/17 [History] Metoprolol [Lopressor] 50 mg PO BID 12/25/17 [History] Sildenafil Citrate [Revatio] 20 mg PO DAILY PRN 12/25/17 [History] metFORMIN [Glucophage] 500 mg PO 0800 12/25/17 [History] Acetaminophen [Tylenol] 650 mg PO Q4HR PRN tablet 12/27/17 [Rx] Furosemide [Lasix] 20 mg PO DAILY #30 tablet 12/27/17 [Rx] Lactulose 20 gm PO DAILY 30 Days #1 solution 12/27/17 [Rx] Omeprazole [PriLOSEC] 40 mg PO BID #60 cap 12/27/17 [Rx] Spironolactone [Aldactone] 12.5 mg PO DAILY #30 tablet 12/27/17 [Rx] Sucralfate [Carafate] 1 gm PO QIDAC 30 Days #120 tablet 12/27/17 [Rx] cephALEXin [Keflex] 500 mg PO BID #10 capsule 12/27/17 [Rx] Allergies/Adverse Reactions: 3 Allergy/AdvReac Type Severity Reaction Status Date / Time No Known Allergies Allergy Verified 12/25/17 09:32 Certification: Further, I certify that my clinical findings support that this patient is homebound (i.e. absences from home require considerable and taxing effort and are for medical reasons or taoism services or infrequently or short duration when for other reasons) because: Homebound Reason: Patient requires assistance of a person or device to safely leave home Attestation: My signature below is to certify that this patient is under my care and that I, or nurse practitioner, or a physician's drilling assistant working with me, has a face-to -face encounter with this patient.
[2017-12-29 07:28] LABS: AFP Tumor Marker Non-Pregnant 3 ng/mL (0-9)
[2017-12-29 07:56] LABS: ANA IgG by ELISA NONE DETECTED (None Detected)
[2017-12-29 07:57] LABS: F-Actin (sm muscle) Ab IgG 11 Units (0-19)
[2017-12-30 08:32] LABS: Myeloperoxidase Ab 1 AU/mL (0-19); Serine Protease-3 Antibody 11 AU/mL (0-19)
== END 2017-12-27 12:05 | disposition home health service (06) | DRG 378 ==
LOC: EMEROO 00:02 → 2NNU 00:02
PROVIDERS: ADMIT Pediatrics; ATTEND Pediatrics